=== PATIENT | female | born 1985 | race Hispanic/Latino ===

== ENCOUNTER 2017-02-05 06:06 | Observation (INO) | payer MEDICAID ==
[2017-02-05] VITALS (17 sets, daily range): BP systolic 104–135; BP diastolic 54–78
[~2017-02-05] VITALS: Ht 167.6 cm; Wt 113.4 kg
[~2017-02-05 06:06] MED LIST: ALBUTEROL SUL0.083 % IN; BENADRYL 25MG C25 MG PO; HEMORRHOIDAL TOP; NORCO1 TA1 PO; PERFECT IRON25 MG PO; PRENATAL1 TA1 PO; SALINE NASAL S0.651; SENNA-TABS8.6 MG PO; TYLENOL325 MG PO
[2017-02-05 06:40] LABS: URINE BILIRUBIN - DIPSTICK NEGATIVE (NEGATIVE); URINE BLOOD DIPSTICK SMALL (NEGATIVE); URINE CLARITY TURBID; URINE COLOR YELLOW; URINE GLUCOSE - DIPSTICK NEGATIVE (NEGATIVE); URINE KETONE NEGATIVE (NEGATIVE); URINE LEUK ESTERASE NEGATIVE (NEGATIVE); URINE NITRITE - DIPSTICK NEGATIVE (Negative); URINE PROTEIN - DIPSTICK NEGATIVE (NEG-TRACE); URINE SPECIFIC GRAVITY 1.015; URINE UROBILINOGEN - DIPSTICK 0.2 E.U./dL (0.2)
[2017-02-05 06:42] LABS: URINE AMORPH SEDIMENT MANY hpf (NONE-FEW); URINE BACTERIA FEW hpf; URINE MUCUS MODERATE hpf (NONE-FEW); URINE RBC 25-50 RBC/hpf (0-5); URINE SQUAMOUS EPITHELIAL CELL MANY EPI/hpf (0-FEW)
[2017-02-05 06:45] LABS: BARBITURATES NEGATIVE (NEGATIVE); COCAINE NEGATIVE (NEGATIVE); METHADONE NEGATIVE (NEGATIVE); TETRAHYDROCANNABIONOL NEGATIVE (NEGATIVE); TRICYLIC ANTIDEPRESSANTS NEGATIVE (NEGATIVE)
[2017-02-05 06:46] LABS: OXCYCODONE NEGATIVE (NEGATIVE)
[2017-02-05 08:21] LABS: HEMATOCRIT 34.1 % (37.0-47.0); HEMOGLOBIN 11.3 g/dl (12.0-16.0); IMMATURE GRANULOCYTES 0.5 % (0.0-1.0); MEAN CORPUSCULAR HGB 28.8 pG CALC (26.0-32.0); MEAN CORPUSCULAR HGB CONC 33.1 g/L CALC (32.0-36.0); NEUT# 6.82 thou/uL (2.00-7.15); RED BLOOD COUNT 3.92 mill/uL (4.20-5.60); RED CELL DISTRI WIDTH 17.6 % (11.5-15.5)
[2017-02-05] MEDS ORDERED: TUMS500 MG PO (08:24)
[2017-02-05 08:31] LABS: ALBUMIN 3.7 g/dL (3.2-5.0); ALKALINE PHOSPHATASE 179 u/l (38-126); ANION GAP 17 (6-22 (CALC)); BUN 10 mg/dL (7-17); BUN/CREATININE RATIO 17 (12-20 (CALC)); CALCIUM 9.7 mg/dL (8.4-10.2); CARBON DIOXIDE 17 mmol/l (22-30); CHLORIDE 106 mmol/l (95-108); CREATININE 0.6 mg/dL (0.5-1.0); GFR > 60 ML/MIN (>=60 (CALC)); GFR FOR AFR.AMER. > 60 ML/MIN (>=60 (CALC)); GLUCOSE 106 mg/dL (65-105); POTASSIUM 4.7 mmol/l (3.5-5.1); SGOT/AST 48 u/l (14-36); SGPT/ALT 17 u/l (9-52); SODIUM 135 mmol/l (137-146); TOTAL PROTEIN 6.9 g/dL (6.3-8.2)
== END 2017-02-05 19:05 | disposition home or self-care (01) | DRG 782 ==
LOC: OB 06:06
PROC: 3E0P3VZ Introduction of Hormone into Female Reproductive, Percutaneous Approach (ICD-10-PCS; principal; 2017-02-05)
DX: O61.0 Failed medical induction of labor (principal); Z3A.39 39 weeks gestation of pregnancy
CPT/HCPCS: G0378

== ENCOUNTER 2017-02-13 03:32 | Inpatient (IN) | payer MEDICAID ==
[2017-02-13] VITALS (33 sets, daily range): BP systolic 87–156; BP diastolic 50–89
[~2017-02-13] VITALS: Ht 167.6 cm; Wt 113.9 kg
[~2017-02-13 03:32] MED LIST changes: +TUMS500 MG PO
--- NOTE | 2017-02-13 03:45 | NUR ---
COMES TO UNIT WITH SROM AT 0240 THIS AM. EDC 02/08/17 WITH GESTATIONAL AGE OF 40.5 WEEKS. REPORTS FETUS IS ACTIVE. DENIES VAGINAL BLEEDING, GREEN AMNIOTIC FLUID OR ODOR TO AMNIOTIC FLUID. STATES CONTRACTIONS ARE MILD - MODERATE IN INTENSITY. SIGNIFICANT OTHER AT BEDSIDE.
[2017-02-13] MEDS ORDERED: TYLENOL325 MG PO (04:20)
[2017-02-13] MEDS ORDERED: BENADRYL 25MG C25 MG PO (04:20)
[2017-02-13 04:41] LABS: URINE BILIRUBIN - DIPSTICK NEGATIVE (NEGATIVE); URINE BLOOD DIPSTICK NEGATIVE (NEGATIVE); URINE CLARITY CLEAR; URINE COLOR YELLOW; URINE GLUCOSE - DIPSTICK NEGATIVE (NEGATIVE); URINE KETONE NEGATIVE (NEGATIVE); URINE LEUK ESTERASE NEGATIVE (NEGATIVE); URINE NITRITE - DIPSTICK NEGATIVE (Negative); URINE PH 6.5 (4.5-8.0); URINE PROTEIN - DIPSTICK NEGATIVE (NEG-TRACE); URINE UROBILINOGEN - DIPSTICK 0.2 E.U./dL (0.2)
[2017-02-13 04:47] LABS: BARBITURATES NEGATIVE (NEGATIVE); COCAINE NEGATIVE (NEGATIVE); METHADONE NEGATIVE (NEGATIVE); OXCYCODONE NEGATIVE (NEGATIVE); TETRAHYDROCANNABIONOL NEGATIVE (NEGATIVE); TRICYLIC ANTIDEPRESSANTS NEGATIVE (NEGATIVE)
[2017-02-13 04:48] LABS: HEMATOCRIT 34.1 % (37.0-47.0); HEMOGLOBIN 11.1 g/dl (12.0-16.0); IMMATURE GRANULOCYTES 0.7 % (0.0-1.0); MEAN CELL VOLUME 88.8 fL CALC (80.0-100.0); MEAN CORPUSCULAR HGB 28.9 pG CALC (26.0-32.0); MEAN CORPUSCULAR HGB CONC 32.6 g/L CALC (32.0-36.0); NEUT# 6.63 thou/uL (2.00-7.15); RED BLOOD COUNT 3.84 mill/uL (4.20-5.60); RED CELL DISTRI WIDTH 17.4 % (11.5-15.5)
--- NOTE | 2017-02-13 05:06 | NUR ---
SVE PERFORMED. PT REQUESTING PAIN MEDICATION. SVE SHOWS DILATION OF 5CM, 80% EFFACED, -1 STATION AND VERTEX. WILL GIVE NUBAIN.
[2017-02-13 05:07] LABS: ALBUMIN 3.4 g/dL (3.2-5.0); ALKALINE PHOSPHATASE 197 u/l (38-126); ANION GAP 15 (6-22 (CALC)); BILIRUBIN, TOTAL 0.4 mg/dL (0.0-1.4); BUN 10 mg/dL (7-17); BUN/CREATININE RATIO 17 (12-20 (CALC)); CALCIUM 9.8 mg/dL (8.4-10.2); CARBON DIOXIDE 18 mmol/l (22-30); CHLORIDE 108 mmol/l (95-108); CREATININE 0.6 mg/dL (0.5-1.0); GFR > 60 ML/MIN (>=60 (CALC)); GFR FOR AFR.AMER. > 60 ML/MIN (>=60 (CALC)); GLUCOSE 82 mg/dL (65-105); POTASSIUM 4.2 mmol/l (3.5-5.1); SGOT/AST 12 u/l (14-36); SGPT/ALT 21 u/l (9-52); SODIUM 137 mmol/l (137-146); TOTAL PROTEIN 6.3 g/dL (6.3-8.2)
--- NOTE | 2017-02-13 06:00 | NUR ---
states had no teeth on upper left, one broken tooth and issues with teeth on both sides on bottom. Patient behavior very labile, goes from happy, sad, ambivilent.
--- NOTE | 2017-02-13 07:00 | NUR ---
REPORT RECEIVED IN ROOM, PT MINDS CONTR, YELLING, VE DONE, 7 CM WIHT CONTR, 0 STA, 90 %EFF, PT ASKING FOR PAIN MED. S/O AT PT SIDE.
--- NOTE | 2017-02-13 07:00 | NUR ---
REPORT GIVEN TO GRETCHEN KING RN ON PT STATUS. PT REQUESTING MORE PAIN MEDICATION. DAY SHIFT RN WILL PERFORM SVE AND TAKE OVER CARE OF PT.
--- NOTE | 2017-02-13 07:08 | NUR ---
DR MAYFIELD NOTIFIED PT STATUS, VE EXAM.
--- NOTE | 2017-02-13 07:10 | NUR ---
PT TO DEL RM 1 VIA WC, SETTLED IN BED. S/O REMAINS AT SIDE.
--- NOTE | 2017-02-13 07:25 | NUR ---
PT MEDICATED FOR LABOR PAIN. PT HAS STUFFY NOSE, ENC TO NOT CRY TO REDUCE STUFFINESS. PT STATES I AM IN PAIN, PT ENC TO REST.
--- NOTE | 2017-02-13 07:40 | NUR ---
PT VERBALIZES HOW SHE WENT INTO LABOR THIS TIME AND WITH LAST BABY, STATES SHE FEELS BETTER NOW, ENC TO REST BETWEEN CONTR. LESS NASAL STUFFINESS.
--- NOTE | 2017-02-13 08:00 | NUR ---
+ MOVEMENT, PT ENC TO CHANGE POSITION, SHE STATES SHE DOES NOT WANT TO CHANGE POSITION, HAS HAD PROBLEMS LYING ON SIDE, POSITON SHE IS IN NOW IS THE MOST COMFORTABLE. EXPLAINED BENEFIT OF CHANGING POSITION, PT STATES SHE DOES NOT CARE IF SHE HAS TO PUSH 2 HRS LONGER DUE TO POSITION OF BABY, SHE DOES NOT WANT TO CHAMGE POSITION, SHE DOES NOT WANT TO STAND. PT TO HIGH FOWLERS POSITION.
--- NOTE | 2017-02-13 08:25 | NUR ---
PT STATED SHE NEEDED MORE PAIN RELIEF, SHE CANNOT FINISH LABOR THIS WAY, PT NOT ABLE TO HAVE MORE PAIN MED, ASKS WHAT ELSE SHE CAN HAVE, STATES SHE WAS NOT WANTING AN EPIDURAL BUT NOW STATES SHE WANTS ONE, AND SOON POSSIBLE BECAUSE SHE CANNOT TOLERATE THE POAIN. DR MAYFIELD NOTIFIED.
--- NOTE | 2017-02-13 08:28 | NUR ---
IV BOLUS BEGUN PREPARING FOR EPIDURAL.
--- NOTE | 2017-02-13 09:10 | NUR ---
0845 MAT ECG, PULSE OX APPLIED. Luke HUSSEIN CRNA HERE TO INTERVIEW PT, PT NOW SITS FOR EPIDURAL. FH 132. PT S/O IN ROOM SUPPORTS PT POSITION. 0854 ROOM CLOCK TIME TIME OUT. PROCEDURE PT CONFIRMATION. 0857 ROOM CLOCK TIME TEST DOSE. 0858 ROOM CLOCK TIME BOLUS START. 0904 PT TO LOW FOWLERS POSITION. PT TOLERATED ALL W/O PROBLEM. 0910 BUTTS CATHETER INSERTED TO STRAIGHT DRAINAGE, JOHNNY URINE DRAINS.
--- NOTE | 2017-02-13 09:17 | NUR ---
15 Luke HUSSEIN CRNA IN ROOM MEDICATED PT WITH EPHEDRINE FOR BP. 916 BP 120/73.
--- NOTE | 2017-02-13 09:25 | NUR ---
FH TO 90S, IV BOLUS CONTINUED, PT MORE TO L SIDE, 02 NRB MASK 9-10 LPM. FH TO 120 THEN TO 90S, VE COMPLETE, MEMB BULGING. DR MAYFIELD TO ROOM VE, AROM MEC FLUID, FH 130S, MOD VARIABILITY. + ACCEL.
--- NOTE | 2017-02-13 09:50 | NUR ---
P RESTS QUIETLY, FH DECELS, EARLY, 2 LATE DECELS, VARIABILITY MIN TO MOD. VE BY DR MAYFIELD, PLAN TO CONTINUE TO OBSERVE.
--- NOTE | 2017-02-13 10:10 | NUR ---
PT RESTS, FH MIN TO MOD VARIABILITY, IV BOLUS CONTINUED, CONTINUING TO OBSERVE.
--- NOTE | 2017-02-13 10:28 | NUR ---
PT RESTS O2 MAINTAINED PT DENIES PAIN S/O REMAINS AT BEDSIDE.
--- NOTE | 2017-02-13 10:30 | NUR ---
DR MAYFIELD IN ROOM VE, PT PUSHES WITH CONTR, PT PREPARED FOR DELIVERY JYOTI PARP DONE.
--- NOTE | 2017-02-13 10:35 | NUR ---
PT PUSHING WITH CONTR.
--- NOTE | 2017-02-13 10:41 | NUR ---
PT PUSHES WIHT CONTR, TOCO REMOVED, CONTR PALPATED.
--- NOTE | 2017-02-13 10:50 | NUR ---
PT HOLDS HER OWN LEGS, PUSHES WITH CONTR.
--- NOTE | 2017-02-13 10:56 | NUR ---
1054 DELIVERY OF INFANT BOY, 10[address] BY [address] MAYFIELD. IV PITOCIN INFUSES ORDERED.
--- NOTE | 2017-02-13 11:15 | NUR ---
P RESTS BONDING WITH .
--- NOTE | 2017-02-13 11:46 | NUR ---
SITS IN BED BR FEEDING INFANT, ABLE TO MOVE FEET. S/O REMAINS AT SIDE.
--- NOTE | 2017-02-13 13:20 | NUR ---
PT FINISHED LUNCH, MOVED TO ROOM 209 VIA WC, PT ABLE TO BEAR WEIGHT, AMBULATES IN ROOM WITHOUT PROBLEM.
--- NOTE | 2017-02-13 14:06 | NUR ---
PT MEDICATED FOR CRAMPING PAIN WITH MOTRIN, PT VERBALLY REVIEWS RECENT LABOR PROGRESS, STATES SHE IS APPRECIATIVE OF EVERYONE'S HELP.
--- NOTE | 2017-02-13 14:45 | NUR ---
SITS IN BED, TALKS WITH S/O.
--- NOTE | 2017-02-13 15:50 | NUR ---
PT AMBULATING IN MORALES, GIVEN SANDWICH PER REQUEST.
--- NOTE | 2017-02-13 17:06 | NUR ---
SITS ON SIDE OF BED. GIVEN SANDWICH PER REQUEST.
--- NOTE | 2017-02-13 17:40 | NUR ---
PT FINISHED DINNER. SITS IN BED HAS BEEN CARING FOR W/O PROBLEM.
--- NOTE | 2017-02-13 18:50 | NUR ---
REPORT TO ONCOMING NURSE. PT SITS ON SIDE OF BED FEENING BABY.
--- NOTE | 2017-02-13 19:30 | NUR ---
PT AWAKE AND ALERT, UP AMBULATING IN RM, DENIES ANY CONCERNS AT THIS TIME, ASSESSMENT DONE- ALL WNL, SIGNIFICANT OTHER AT BEDSIDE, PT ENCOURAGED TO CALL NURSE FOR ANY NEEDS OR CONCERNS- VERBALIZES UNDERSTANDING.
--- NOTE | 2017-02-14 | NUR ---
PT UP AMBULATING IN , DENIES ANY NEEDS AT THIS TIME, WILL CONT TO MONITOR.
[2017-02-14 04:00] VITALS: BP 121/75
[2017-02-14 06:10] LABS: HEMATOCRIT 32.5 % (37.0-47.0); HEMOGLOBIN 10.4 g/dl (12.0-16.0); IMMATURE GRANULOCYTES 0.5 % (0.0-1.0); MEAN CELL VOLUME 91.8 fL CALC (80.0-100.0); MEAN CORPUSCULAR HGB 29.4 pG CALC (26.0-32.0); NEUT# 5.45 thou/uL (2.00-7.15); RED BLOOD COUNT 3.54 mill/uL (4.20-5.60); RED CELL DISTRI WIDTH 17.6 % (11.5-15.5)
--- NOTE | 2017-02-14 06:27 | NUR ---
PT SLEEPING QUIETLY IN BED, NO APPARENT DISTRESS NOTED AT THIS TIME.
--- NOTE | 2017-02-14 08:37 | NUR ---
PT IN ROOM WITH INFANT AND . 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 PT ALSO WOULD LIKE SOMETHING MORE THAN MOTRIN FOR PAIN MEDICINE BECAUSE MOTRIN DOESN'T REALLY WORK FOR HER. RN EXPLAINED TO PATIENT THAT WE WOULD NEED TO TALK WITH THE DOCTOR TO GET MORE MEDICATION AND THAT HE WAS ON HIS WAY IN. ALSO RN CALLED THE KITCHEN TO HAVE THE FOOD ISSUE RESOLVED.
--- NOTE | 2017-02-14 14:40 | NUR ---
PT DISCHARGED HOME VIA WHEELCHAIR AND TAXI. PT DENIES ANY NEEDS. PT PAIN AND BLEEDING UNDER CONTROL. PT VITALS STABLE AND PLANS FOR A FOLLOW UP APPOINTMENT WITH DR MAYFIELD IN 4 WEEKS.
== END 2017-02-14 14:35 | disposition home or self-care (01) | DRG 775 ==
LOC: OBOP 03:32 → EDSTATUS 03:33 → OBOP 03:40 → OB 03:40 → OBOP 05:01 → OB 05:02
PROC: 10E0XZZ Delivery of Products of Conception, External Approach (ICD-10-PCS; principal; 2017-02-13)
PROC: 10907ZC Drainage of Amniotic Fluid, Therapeutic from Products of Conception, Via Natural or Artificial Opening (ICD-10-PCS; 2017-02-13)
DX: O42.02 Full-term premature rupture of membranes, onset of labor within 24 hours of rupture (principal); G47.30 Sleep apnea, unspecified; O69.81X0 Labor and delivery complicated by cord around neck, without compression, not applicable or unspecified; O77.0 Labor and delivery complicated by meconium in amniotic fluid; O76 Abnormality in fetal heart rate and rhythm complicating labor and delivery; Z3A.40 40 weeks gestation of pregnancy; Z37.0 Single live birth
CPT/HCPCS: J2795